=== PATIENT | female | born 1990 | race Caucasian/White ===

== ENCOUNTER 2024-04-09 17:26 | Observation (INO) | payer OTHER ==
[~2024-04-09] VITALS: Ht 170.2 cm; Wt 102.3 kg
[2024-04-09 18:01] LABS: BASO % 0.2 % (0.0-1.0); EOS % 0.4 % (0.0-3.0); HEMATOCRIT 27.1 % (36.0-47.0); HEMOGLOBIN 8.5 g/dl (12.0-15.5); LYMPH # 0.5 10^3/uL (1.5-5.0); LYMPH % 9.5 % (24.0-44.0); MEAN CORPUSCULAR HEMOGLOBIN 24.9 pg (27.0-33.0); MEAN CORPUSCULAR HGB CONC 31.4 g/dl (32.0-36.5); MEAN CORPUSCULAR VOLUME 79.2 fl (80.0-96.0); MONO # 0.2 10^3/uL (0.0-0.8); MONO % 3.3 % (2.0-8.0); NEUTROPHILS # 4.7 10^3/uL (1.5-8.5); NEUTROPHILS % 86.2 % (36.0-66.0); PLATELET COUNT, AUTOMATED 377 10^3/uL (150-450); RED BLOOD COUNT 3.42 10^6/uL (4.00-5.40); WHITE BLOOD COUNT 5.4 10^3/uL (4.0-10.0)
[2024-04-09 18:25] LABS: INR 1.2; PROTHROMBIN TIME 14.8 SECONDS (12.5-14.5)
[2024-04-09 18:33] LABS: ALBUMIN 2.6 G/DL (3.2-5.2); ALKALINE PHOSPHATASE 120 U/L (46-116); ALT/SGPT < 9 U/L (7.0-40); AST/SGOT < 8 U/L (<34); BILIRUBIN,TOTAL 0.7 MG/DL (0.3-1.2); BLOOD UREA NITROGEN 14 MG/DL (9-23); CALCIUM LEVEL 9.2 MG/DL (8.5-10.1); CARBON DIOXIDE LEVEL 22 MMOL/L (20-31); CHLORIDE LEVEL 106 MMOL/L (98-107); CREATININE FOR GFR 0.74 MG/DL (0.55-1.30); GLOMERULAR FILTRATION RATE > 60.0 (>60); GLUCOSE, FASTING 113 MG/DL (60-100); SODIUM LEVEL 137 MMOL/L (136-145); TOTAL PROTEIN 6.3 G/DL (5.7-8.2)
[2024-04-09] MEDS: NS 1,000 ML IV ONE (18:33)
[2024-04-09] MEDS: ACETAMINOPHEN 325 MG TAB PO ONE (18:55)
[2024-04-09] MEDS ORDERED: ISOVUE-370 76% 100ML VIAL As Ordered ONE (18:56)
[2024-04-09] MEDS ORDERED: FAMO20TA PO (19:07)
[2024-04-09] MEDS ORDERED: ABIL20TA5 PO (19:07)
[2024-04-09] MEDS ORDERED: OXYC1TAB23 PO (19:08)
[2024-04-09 19:54] LABS: PROCALCITONIN 0.11 ng/ml
[2024-04-09] MEDS: PIPERACILLIN/TAZOBACTAM SOD 3.375 GM in DEXTROSE 5% (D5W) ADV/MINI-BAG 50 ML IV ONE (20:25)
[2024-04-09] MEDS: PHYTONADIONE 5 MG TAB PO ONE (20:35)
[2024-04-09] MEDS: MORPHINE 2 MG/ML 1ML VIAL IV ONE (21:28)
[2024-04-09] MEDS ORDERED: propofoL 200 MG/20 ML VIAL As Ordered ONE (22:21)
[2024-04-09] MEDS ORDERED: fentaNYL 250 MCG/5 ML INJECTION As Ordered ONE (22:21)
[2024-04-09] MEDS ORDERED: MIDAZOLAM INJ 2MG/2ML VIAL As Ordered ONE (22:21)
[2024-04-09] MEDS ORDERED: ROCURONIUM BROMIDE 50MG/5ML VIAL As Ordered ONE (22:21)
[2024-04-09] MEDS ORDERED: LIDOCAINE 2% 100MG/5ML SDV (FOR ANES.) As Ordered ONE (22:21)
[2024-04-09] MEDS ORDERED: ONDANSETRON 4MG 2ML VIAL As Ordered ONE (22:22)
[2024-04-09] MEDS ORDERED: VASOPRESSIN INJ 20UNITS/ML 1ML VIAL As Ordered ONE (23:04)
[2024-04-09] MEDS ORDERED: KETOROLAC 60MG 2ML VIAL As Ordered ONE (23:24)
[2024-04-09] MEDS ORDERED: SUGAMMADEX SODIUM 500 MG/5 ML VIAL (BRIDION) As Ordered ONE (23:26)
[2024-04-09] MEDS: LIDOCAINE 1% SDV 30ML VIAL As Ordered ONE (23:29)
[2024-04-09] MEDS ORDERED: ONDANSETRON 4MG 2ML VIAL IV PRN (23:45)
[2024-04-10] VITALS (9 sets, daily range): BP systolic 96–124; BP diastolic 52–72; TEMP 96.8–98.2; O2SAT 96–100
[2024-04-10] MEDS: LR 1,000 ML IV SCH (00:52)
[2024-04-10] MEDS: PERCOCET 5MG/325MG TAB PO PRN (00:55)
[2024-04-10] MEDS: PIPERACILLIN/TAZOBACTAM SOD 3.375 GM in DEXTROSE 5% (D5W) ADV/MINI-BAG 50 ML IV SCH (03:12)
[2024-04-10] MEDS ORDERED: KETOROLAC 30 MG/ML 1ML VIAL IV PRN (05:00)
[2024-04-10 06:10] LABS: ALBUMIN 2.3 G/DL (3.2-5.2); ALKALINE PHOSPHATASE 93 U/L (46-116); ALT/SGPT < 9 U/L (7.0-40); AST/SGOT < 8 U/L (<34); BILIRUBIN,TOTAL 0.6 MG/DL (0.3-1.2); BLOOD UREA NITROGEN 16 MG/DL (9-23); CALCIUM LEVEL 8.1 MG/DL (8.5-10.1); CARBON DIOXIDE LEVEL 25 MMOL/L (20-31); CHLORIDE LEVEL 108 MMOL/L (98-107); CREATININE FOR GFR 0.81 MG/DL (0.55-1.30); GLOMERULAR FILTRATION RATE > 60.0 (>60); GLUCOSE, FASTING 140 MG/DL (60-100); POTASSIUM SERUM 4.1 MMOL/L (3.5-5.1); SODIUM LEVEL 139 MMOL/L (136-145); TOTAL PROTEIN 5.5 G/DL (5.7-8.2)
[2024-04-10] MEDS ORDERED: IBUP-1022 PO (08:28)
[2024-04-10] MEDS ORDERED: HOME MED LIST COMPLETE! XX SCH (08:30)
[2024-04-10] MEDS ORDERED: CEPH500C PO (15:26)
[2024-04-10] MEDS ORDERED: DOXY100C3 PO (15:26)
== END 2024-04-10 18:40 | disposition home or self-care (01) ==
LOC: EDBD 17:26 → M ED 17:26 → M ED INP 23:57 → M MSPAV 04-10 00:24
PROVIDERS: ADMIT Student in an Organized Health Care Education/Training Program; ATTEND Specialist
DX: L76.34 Postprocedural seroma of skin and subcutaneous tissue following other procedure (principal); Z79.2 Long term (current) use of antibiotics; Z79.899 Other long term (current) drug therapy; Z88.5 Allergy status to narcotic agent
CPT/HCPCS: 20102; 36415; 74177; 80047; 80053; 83605; 84145; 85025; 85610; 86850; 86900; 86901; 87040; 93005; 96361; 96365; 96366; 96375; 99285; J1100; J1885; J2250; J2405; J2543; J2598; J3010; P9045; Q9967